=== PATIENT | female | born 1985 | race Hispanic/Latino ===

== ENCOUNTER 2023-01-06 07:23 | Emergency (ER) | payer SELFPAY ==
[~2023-01-06] VITALS: Ht 152.4 cm; Wt 78.2 kg
[2023-01-06] MEDS ORDERED: PREDNISONE20 MG PO (07:56)
[2023-01-06] MEDS ORDERED: AMOXICILLIN875 MG PO (07:56)
[2023-01-06] MEDS ORDERED: OFLOXACIN5 ML OT (07:56)
[2023-01-06 08:05] VITALS: O2SAT 99
== END 2023-01-06 08:08 | disposition home or self-care (01) ==
LOC: FSED 07:46
DX: H66.92 Otitis media, unspecified, left ear (principal)
CPT/HCPCS: 99283